=== PATIENT | male | born 1970 | race American Indian/Alaskan Native ===

== ENCOUNTER 2022-11-23 08:15 | Day surgery (SDC) | payer OTHER ==
[~2022-11-23] VITALS: Ht 172.7 cm; Wt 86.4 kg
[~2022-11-23 08:15] MED LIST: NORCO 5-325 TA1 EACH PO; OMEPRAZOLE20 MG PO; ZOFRAN4 MG PO
[2022-11-23 08:43] VITALS: BP 126/90
--- NOTE | 2022-11-23 10:23 | NUR ---
11/23/22 1023 Belen Justice 1021 PATIENT ARRIVES TO PACU AWAKE BUT DROWSY. DENIES PAIN OR NAUSEA. RESP EVEN AND UNLABORED, NC AT 3 LITERS, TURNED OFF.
[2022-11-23 10:47] VITALS: BP 118/88
--- NOTE | 2022-11-23 12:48 | OR ---
[facility] [address], [place] [address] Signed DATE OF OPERATION: 11/23/2022 SURGEON: Crista Angulo MD PREOPERATIVE DIAGNOSIS: Colon screening. POSTOPERATIVE DIAGNOSES: 1. Pandiverticulosis. 2. Polyps x2 (sigmoid and rectosigmoid). PROCEDURE: Total colonoscopy to cecum with cold morcellation polypectomy x2. ANESTHESIA: Intravenous sedation, fentanyl 100 mcg and Versed 7 mg. INDICATIONS: This 52-year-old man is a patient of Dr. Banda at [facility] and was referred for screening colonoscopy. He has no family history of colon cancer, but his father has had polyps. He has no symptoms of bleeding, diarrhea, or constipation. He is admitted to undergo colonoscopy for screening. He understands the risk of bleeding, infection, and perforation. FINDINGS: The prep was excellent. Complete colonoscopy was undertaken to the cecum without question. An extensive diverticulosis extending from the sigmoid to the cecum. There were two small polyps, both excised completely, one in the rectosigmoid, the other in the sigmoid. DESCRIPTION OF PROCEDURE: The patient was brought to the endoscopy suite and placed in lateral decubitus position, given intravenous sedation to the point of slurred speech and nystagmus. Digital rectal examination was normal. Olympus video colonoscope was passed into the rectum and manipulated into the sigmoid, where numerous diverticula were noted. The scope was carefully manipulated throughout the colon, ultimately intubating the cecum itself. The ileocecal valve and appendiceal orifice were normal. The scope was withdrawn from that point and examination throughout showed no sign of abnormality until the sigmoid, where a small polyp was noted, this was Electronically Signed By: CRISTA ANGULO MD 11/23/22 1248 PATIENT NAME: AI DEVI OPERATIVE REPORT DATE OF : 66 REPORT #: [id number] PHYSICIAN: CRISTA ANGULO MD PCP: [facility] REPORT IS CONFIDENTIAL AND NOT TO BE RELEASED WITHOUT AUTHORIZATION [facility] [address], [place] [address] Signed excised with cold morcellation technique. Further withdrawal showed another more obvious polyp in the rectosigmoid proper. It too was excised with cold morcellation technique. Retroflexed view in the rectum was normal. Scope was removed. The patient was taken to the recovery room in good condition. CONCLUDING DIAGNOSIS: Polyps x2. PLAN: Recommend repeat colonoscopy in three years or sooner if clinically indicated. He will return to the ongoing care of Dr. Banda at [facility]. MD GAIL Wu/DEENA /[id number] cc: Dr. Banda [facility] Copies: ~ Electronically Signed By: CRISTA ANGULO MD 11/23/22 1248 PATIENT NAME: AI DEVI OPERATIVE REPORT DATE OF : 66 REPORT #: [id number] PHYSICIAN: CRISTA ANGULO MD PCP: [facility] REPORT IS CONFIDENTIAL AND NOT TO BE RELEASED WITHOUT AUTHORIZATION
--- NOTE | 2022-11-28 16:12 | PATH ---
[facility] [address] [place], [place] [address] Signed THIS IS AN ADDENDUM REPORT SPECIMEN(S): A RECTOSIGMOID BIOPSY SPECIMEN(S): B RECTAL POLYP SPECIMEN SOURCE: A. RECTOSIGMOID BIOPSY B. RECTAL POLYP CLINICAL HISTORY: Screening. Post: Possible polyp, diverticulosis, rectosigmoid mucosal lesion. FINAL PATHOLOGIC DIAGNOSIS: A. Rectosigmoid, biopsy: - Benign colonic mucosa with prominent intramucosal lymphoid aggregate. - An additional fragment of rectosigmoid tissue is within normal limits. - No evidence of neoplasia. B. 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 - Histologic grade determination: - Mitotic rate: Less than 2 mitoses per 2 mm2. - Tumor size: 1.5 mm. COMMENT: Regarding specimen A, sections of colonic tissue demonstrate a benign intramucosal lymphoid aggregate. Intramucosal lymphoid aggregates can sometimes appear as polyps endoscopically. They have no clinical significance. There is no evidence of dysplasia or malignancy. Regarding specimen B, confirmatory immunohistochemical stains are pending and results will follow in an addendum report. As part of [facility]' Quality Improvement Program, this case was reviewed by another member of our pathology staff. CRYSTAL:LEOPOLDO:andrewh:C1NR MICROSCOPIC EXAMINATION: Histologic sections of all submitted blocks are examined by light microscopy. These findings, together with the gross examination, support the pathologic diagnosis. PATIENT NAME: AI DEVI PATHOLOGY DATE OF : 66 REPORT #: [id number] PHYSICIAN: CLARK BLACK PCP: [facility] REPORT IS CONFIDENTIAL AND NOT TO BE RELEASED WITHOUT AUTHORIZATION [facility] [address], [place] [address] Signed GROSS DESCRIPTION: A. The specimen, labeled and designated "[place], rectosigmoid colon biopsy," is received in formalin and consists of one puckett soft tissue fragment, 0.3 cm. Entirely submitted in (A1). B. The specimen, labeled and designated "[place], rectal polyp," is received in formalin and consists of one puckett soft tissue fragment, 0.2 cm. Entirely submitted in (B1). JS (under the direct supervision of a pathologist) The Gross Description was prepared using a voice recognition system. The report was reviewed for accuracy; however, sound-alike word errors, addition and/or deletions may occur. If there is any question about this report, please contact Client Services. PERFORMING LABORATORY: The technical component was performed by [facility], [address] [place] [id number] (CLIA# [id number]). The professional interpretation was performed by [facility], [facility], [address] [place] [place] [address] (CLIA#: [id number]). ADDITIONAL NOTES: Immunohistochemical and/or in situ hybridization studies were performed on this case with the appropriate positive controls that react as expected. This test was developed and its performance characteristics determined by [facility]. It has not been cleared or approved by the U.S. Food and Drug Administration. The FDA has determined that such clearance or approval is not necessary. This test is used for clinical purposes. It should not be regarded as investigational or for research. [facility] is certified under the Clinical Laboratory Improvement Amendments of 1988 (CLIA) as qualified to perform high complexity clinical laboratory testing. This assay has not been validated for specimens that have been decalcified. REASON FOR ADDENDUM: To add results of additional testing on specimen B. ADDENDUM COMMENT: Immunohistochemical stains reveal the following: - POSITIVE: Synaptophysin - NEGATIVE: Chromogranin. Ki-67 immunohistochemical stain is positive in approximately 1-2% of tumor cells present. These findings confirm the diagnosis above. There is no change PATIENT NAME: AI DEVI PATHOLOGY DATE OF : 66 REPORT #: [id number] PHYSICIAN: CLARK PATHOLOGY PCP: [facility] REPORT IS CONFIDENTIAL AND NOT TO BE RELEASED WITHOUT AUTHORIZATION [facility] [address] [place] [id number] Signed in the diagnosis. Control slides stained appropriately positive. KIMOK:tiffanie Diagnostician: Nam Spann MD Pathologist Electronically Signed 11/28/2022 Copies: ~ PATIENT NAME: AI DEVI PATHOLOGY DATE OF : 66 REPORT #: [id number] PHYSICIAN: [facility] PATHOLOG[facility] REPORT IS CONFIDENTIAL AND NOT TO BE RELEASED WITHOUT AUTHORIZATION
== END 2022-11-23 10:55 | disposition home or self-care (01) ==
LOC: DS 08:15
PROVIDERS: ATTEND Surgery
DX: Z12.11 Encounter for screening for malignant neoplasm of colon (principal); D3A.026 Benign carcinoid tumor of the rectum; K57.30 Diverticulosis of large intestine without perforation or abscess without bleeding
CPT/HCPCS: 99153; G0500; J2250; J3010